=== PATIENT | female | born 1960 | race Caucasian/White ===

== ENCOUNTER 2018-03-13 10:03 | Outpatient (CLI) | payer BC, SELFPAY ==
--- NOTE | 2018-03-13 09:39 | DI.RAD_ITS ---
SYMPTOM/DIAGNOSIS: INJURY RIGHT KNEE: Two views. No priors. No acute or healing fracture or dislocation is seen. There are mild degenerative changes seen in the knee particularly involving the medial femoral tibial joint space. There does appear to be a small suprapatellar joint effusion. The soft tissues are otherwise unremarkable. IMPRESSION: No acute fracture or dislocation.
== END 2018-03-13 10:23 ==
PROVIDERS: Visit Provider Physician Assistant Surgical
DX: M25.561 Pain in right knee (principal); S89.91XA Unspecified injury of right lower leg, initial encounter; M17.11 Unilateral primary osteoarthritis, right knee
CPT/HCPCS: 73560

== ENCOUNTER 2018-03-23 00:27 | Outpatient (CLI) | payer BC, SELFPAY ==
--- NOTE | 2018-03-23 09:29 | DI.MRI_ITS ---
SYMPTOM/DIAGNOSIS: PAIN, INTERNAL DERANGEMENT, M23.91, SWELLING RIGHT KNEE MRI: Comparison is made with plain films dated 03/13/18. Fat suppressed T 2 axial, proton density and fat suppressed T 2 coronal and sagittal and proton density oblique sagittal sequences were performed. There is a moderate sized joint effusion. There is a small amount of edema near the tibial attachment of the anterior cruciate ligament but no full thickness tear. There is edema around the medial collateral ligament but no evidence of a focal tear. The lateral collateral complex and extensor mechanism appear intact. There is edema in the posterior aspect of the medial femoral condyle and posteromedial aspect of the medial tibial plateau. There is cartilage thinning extending down to bone in this area The findings may be secondary to an acute injury or could be degenerative. There is high signal in the lateral patellar facet cartilage without evidence of a focal defect. There is some fraying of the patellar cartilage. There is mild spurring at the lateral margin of the patella. There is a radially oriented tear in the posterior horn of the medial meniscus near the area of cartilage defect. The lateral meniscus appears intact. IMPRESSION: ACL and MCL sprains. Bone contusion versus degenerative change of the posterior medial femoral condyle with adjacent meniscal radial tear. Joint effusion.
== END 2018-03-23 00:47 ==
PROVIDERS: Visit Provider Orthopaedic Surgery
DX: M25.561 Pain in right knee (principal); M23.91 Unspecified internal derangement of right knee; M25.461 Effusion, right knee; S83.511A Sprain of anterior cruciate ligament of right knee, initial encounter; S83.411A Sprain of medial collateral ligament of right knee, initial encounter
CPT/HCPCS: 73721

== ENCOUNTER 2018-04-12 07:53 | Outpatient (CLI) | payer BC, SELFPAY ==
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
== END 2018-04-12 08:13 ==
PROVIDERS: PCP Family Medicine; Visit Provider Orthopaedic Surgery
DX: M25.561 Pain in right knee (principal); S83.241A Other tear of medial meniscus, current injury, right knee, initial encounter; Z01.818 Encounter for other preprocedural examination
CPT/HCPCS: NC

== ENCOUNTER 2018-04-16 05:57 | Day surgery (SDC) | payer BC, SELFPAY ==
[2018-04-16 06:11] VITALS: BP 122/73; PULSE 77; RESP 18; TEMP 37.1; O2SAT 98
[2018-04-16] MEDS: Lactated Ringers 1,000 ML 80 ML IV (06:30)
[2018-04-16 08:39] VITALS: BP 130/67; PULSE 70; RESP 16; TEMP 36.4; O2SAT 94
[2018-04-16 08:44] VITALS: BP 126/70; PULSE 68; RESP 11; TEMP 36.4; O2SAT 96
--- NOTE | 2018-04-16 08:44 | PDOC.DSDIS_ITS ---
Discharge Plan Disposition Patient Disposition: HOME Condition: Good Discharge Details Reason For Visit: TORN (R) MEDIAL MENISCUS Attending Provider: Mihai Vernon Primary Care Provider: Nay Hendricks Home Meds and New Rx's Prescriptions: New celecoxib 200 mg capsule 200 mg PO BID Qty: 30 RF: 0 hydrocodone-acetaminophen 5-325 mg tablet 1 tab PO Q6H PRN (Reason: pain) Qty: 14 RF: 0 Continued cyclobenzaprine 10 mg tablet 10 mg PO TID PRN (Reason: muscle spasm) RF: 0 promethazine 6.25 MG/5 ML syrup 25 mg PO PRN RF: 0 zolpidem [Ambien] 5 MG tablet 5 mg PO DAILY RF: 0 aspirin [Aspir-81] 81 MG tablet,delayed release (DR/EC) 81 mg PO DAILY RF: 0 multivitamin Tablet 1 tab PO DAILY RF: 0 sertraline [Zoloft] 100 mg Tablet 100 mg PO DAILY RF: 0 wlvx-4-dgi-dha-fish oil-flax-E [id number] sy-zl-ki-unit Capsule 1 cap PO DAILY RF: 0 ropinirole 0.5 mg Tablet 0.5 mg PO HS RF: 0 nicotine (polacrilex) [Nicorette] 2 mg Gum 0.5 mg BUCCAL PRN PRNRF: 0 Discontinued naproxen 500 mg Tablet 500 mg PO TID RF: 0 Discharge Instructions Additional Instructions: Elevate R leg on 1-2 pillows as much as possible over next 48 hours. Crutches to walk. Put as much weight on R leg as your pain allows. Discontinue crutches when you can step fully on R leg with minimal discomfort. Keep cryocuff on R knee continuously until tomorrow AM. Tomorrow, start to use 4 times/day for 1 hour each time to decrease swelling and pain. Remove dressings, shower, and get incisions wet after 48 hours. Leave incisions uncovered when they are dry and sealed. Take celebrex as prescribed, twice/day for inflammation and swelling. Don't take naprosyn with celebrex. Take hydrocodone if needed, for breakthru pain. Outpatient Physical therapy on Mon or to begin rehab R knee post- arthroscopic partial medial meniscectomy. Follow up in 's office in 2 weeks. Referrals: Mihai Vernon MD [ [facility] STAFF PHYSICIAN] - (f/u in 2 weeks.) Equipment/Supplies: Partial Weight Bearing Crutches Activity:: Activity as Tolerated Remove Dressings/Wound Care:: 48 hours Shower/Bathe:: 48 hours Diet:: As Tolerated Discharge Orders Discharge Orders: Discharge Order (Routine); Ordered 04/16/18 Ordered By: Mihai Vernon DS: Diagnosis Discharge Diagnosis (1) Internal derangement of knee: Status: Acute (2) Internal derangement of right knee: Status: Acute
[2018-04-16 08:49] VITALS: BP 135/72; PULSE 67; RESP 11; TEMP 36.4; O2SAT 97
[2018-04-16 09:05] VITALS: BP 133/76; PULSE 66; RESP 11; TEMP 36.3; O2SAT 97
[2018-04-16 09:55] VITALS: BP 99/65; PULSE 82; RESP 16; TEMP 36; O2SAT 96
[2018-04-16] MEDS: oxyCODONE-CR 10 MG TABCR PO (10:09)
--- NOTE | 2018-04-16 11:24 | PT.INIE ---
Date of service: 04/16/18 Time of Service: 10:55 PT Notes Inpatient Physical Therapy Evaluation Date: 04/16/2018 Referring Doctor: Mihai Vernon MD PT Orders: PT CONSULT: Instruct patient in home program of right knee range of motion exercises and quad strengthening. See in DSU prior to discharge home. Do the exercises 3 times per day Precautions: WBAT right lower extremity Patient Profile/Admitting Diagnosis: Patient is a 58-year-old female status post right medial meniscectomy and knee arthroscopy by Dr. Vernon 04/16/2018 PMHX: Posttraumatic stress disorder, breast lump removal, right breast lumpectomy, phyllodes tumor of breast, colitis, cervical nerve root impingement, cervical spine disease, internal derangement of right knee, trigger finger release, hyperlipidemia Social History/Home Situation: Lives with spouse and home Equipment Owned/DME: Axillary crutches, CryoCuff Subjective: Patient sitting in recliner chair in same day surgery status post right medial meniscectomy and knee arthroscopy. Alert and agreeable to PT consult for instruction in home exercise program and range of motion exercises. Objective: Mental Status: A and O x3 Pain: No complaints of pain Therex: Patient issued and instructed in status post knee arthroscopy range of motion and strengthening exercises, handout provided. See handout on medical record for details. Patient instructed to perform exercises 3 times per day per MD order and use cryo Cryo/Cuff status post exercise program for reduction of edema and pain. Patient verbalized understanding of therapeutic exercise, no questions at this time. Special Tests: Mobility Limitations Standardized Measure [facility] AM-PAC 6 clicks Basic Mobility Inpatient Short Form: Raw Score: 18 standardized Score: 43.63 CMS Score: 46.58% CMS Modifier: CK Informed Consent/Education: Patient instructed in purpose of PT consult and plan of care. Assessment: Patient is a 58-year-old female status post right medial meniscectomy and knee arthroscopy by Dr. Vernon 04/16/2018. Patient presents with the following impairment level findings: Decreased strength right quadricep, decreased range of motion right knee, decreased mobility requiring use of axillary crutches postoperatively. Patient was issued instruction in home exercise program (see above), patient independent with therapeutic exercise after instruction. Patient to be discharged home today with follow-up appointment with MD in a couple weeks. Impairments are contributing to the following functional limitations: AMPAC score CMS Score: 46.58% Patient is assessed as Low 11583 complexity based on the following: History: See above Examination: See above Presentation: Stable Decision Making: AMPAC score CMS Score: 46.58% Goals: not applicable Plan of Care/Treatment Plan: PT eval only DISCHARGE RECOMMENDATIONS: Home with axillary crutches and Cryo/Cuff and issued home exercise program for right knee range of motion and strengthening to perform 3 times per day TREATMENT CODE/TIME: 24 min IE 10:55 AM G Codes in the area mobility of walking and moving around: current status [id number] CK; projected status GP [id number]. Discharge status (if discharging) GP [id number] CK Tavia Israel PT.
--- NOTE | 2018-04-16 11:27 | IN_ITS ---
Date of service: 04/16/18 Time of Service: 10:55 PT Notes Inpatient Physical Therapy Evaluation Date: 04/16/2018 Referring Doctor: Mihai Vernon MD PT Orders: PT CONSULT: Instruct patient in home program of right knee range of motion exercises and quad strengthening. See in DSU prior to discharge home. Do the exercises 3 times per day Precautions: WBAT right lower extremity Patient Profile/Admitting Diagnosis: Patient is a 58-year-old female status post right medial meniscectomy and knee arthroscopy by Dr. Vernon 04/16/2018 PMHX: Posttraumatic stress disorder, breast lump removal, right breast lumpectomy, phyllodes tumor of breast, colitis, cervical nerve root impingement, cervical spine disease, internal derangement of right knee, trigger finger release, hyperlipidemia Social History/Home Situation: Lives with spouse and home Equipment Owned/DME: Axillary crutches, CryoCuff Subjective: Patient sitting in recliner chair in same day surgery status post right medial meniscectomy and knee arthroscopy. Alert and agreeable to PT consult for instruction in home exercise program and range of motion exercises. Objective: Mental Status: A and O x3 Pain: No complaints of pain Therex: Patient issued and instructed in status post knee arthroscopy range of motion and strengthening exercises, handout provided. See handout on medical record for details. Patient instructed to perform exercises 3 times per day per MD order and use cryo Cryo/Cuff status post exercise program for reduction of edema and pain. Patient verbalized understanding of therapeutic exercise, no questions at this time. Special Tests: Mobility Limitations Standardized Measure [facility] AM-PAC 6 clicks Basic Mobility Inpatient Short Form: Raw Score: 18 standardized Score: 43.63 CMS Score: 46.58% CMS Modifier: CK Informed Consent/Education: Patient instructed in purpose of PT consult and plan of care. Assessment: Patient is a 58-year-old female status post right medial meniscectomy and knee arthroscopy by Dr. Vernon 04/16/2018. Patient presents with the following impairment level findings: Decreased strength right quadricep, decreased range of motion right knee, decreased mobility requiring use of axillary crutches postoperatively. Patient was issued instruction in home exercise program (see above), patient independent with therapeutic exercise after instruction. Patient to be discharged home today with follow-up appointment with MD in a couple weeks. Impairments are contributing to the following functional limitations: AMPAC score CMS Score: 46.58% Patient is assessed as Low 63991 complexity based on the following: History: See above Examination: See above Presentation: Stable Decision Making: AMPAC score CMS Score: 46.58% Goals: not applicable Plan of Care/Treatment Plan: PT eval only DISCHARGE RECOMMENDATIONS: Home with axillary crutches and Cryo/Cuff and issued home exercise program for right knee range of motion and strengthening to perform 3 times per day TREATMENT CODE/TIME: 24 min IE 10:55 AM G Codes in the area mobility of walking and moving around: current status GPG [id number] CK; projected status GP [id number]. Discharge status (if discharging) GP [id number] CK Tavia Israel PT.
--- NOTE | 2018-04-16 16:25 | ROE_ITS ---
DATE OF PROCEDURE: April 16, 2018 PREOPERATIVE DIAGNOSIS: Torn medial meniscus with chondral injury to the medial femoral condyle, rig ht knee. POSTOPERATIVE DIAGNOSIS: Same. PROCEDURE: Arthroscopic partial medial meniscectomy, limited chondroplasty medial femoral condyle an d patella, limited synovectomy. SURGEON: Mihai Vernon M.D. ANESTHESIA: General, Ora Clark CRNA INDICATIONS: This is a 58-year-old white female who began experiencing right posteromedial knee pain with intermittent swelling at the end of September/early October of 2017. She describes an incident where s he fell backwards and hyperflexed her right knee. She experienced swelling a few days after this inc ident. The swelling has subsided but she has continued to have pain. This has not responded at all to conservative treatment. It is generally brought on by weightbearing and relieved by getting off h er feet. After she had failed to improve with conservative treatment, an MRI scan was obtained. The MRI scan did show a tear of the posterior horn of the medial meniscus with evidence of a chondral in jury to the medial femoral condyle just adjacent to her meniscal tear. Because of the failure of imp rovement with conservative treatment arthroscopic surgery was recommended to resect the meniscal tear and to treat the chondral injury. Hopefully this would cause her symptoms to subside. The risks an d complications of the procedure were explained to the patient in detail preoperatively. PROCEDURE: The patient was taken to the Operating Room on 04/16/18. She was placed supine on the oper ating table and a general anesthetic was administered. The right thigh was placed in the arthroscopi c leg zhou. The right knee was then prepped and draped free in the usual sterile fashion. Arthros copic portals were established. The right knee was inflated with normal saline solution using the ar throscopy pump and then routine arthroscopic examination proceeded. Intraoperative photographs were obtained to document the findings. Upon entering the medial compartment she was found to have normal appearing articular cartilage on th e weightbearing portion. The medial meniscus appeared intact until I got to the posterior horn. Whe n I got to the posterior horn there was a vertical tear just medial to the posterior attachment of th e medial meniscus. The attachment of the meniscus, or the meniscal root, was not injured. Just jillian cent to the meniscal tear on the medial femoral condyle nonarticulating portion was evidence of chond ral injury with loose articular cartilage that could be manipulated using a right-angle probe. I int roduced a high-radiofrequency electrocautery wand 90 degrees and I then debrided the loose articular cartilage back down to stable articular cartilage. There was no full-thickness loss of articular car tilage. After smoothing and contouring the femoral condyle, I extended the knee and visualized the a rticulation of the condyle against the tibial plateau. Mostly the lesion was nonarticulating on the medial femoral condyle. I then turned my attention to the medial meniscal tear. Using punch forceps and then the high-radiof requency electrocautery wand I was able to resect the tear back to a stable rim. At this point the m edial meniscus was probed under direct vision and was fully stable. The intercondylar notch showed i ntact anterior and posterior cruciate ligaments. The lateral compartment showed a normal lateral meniscus that was stable to probing under direct visi on. There was normal articular cartilage in the lateral compartment. The medial and lateral gutters were clear. The suprapatellar pouch was clear. The patella appeared to be tracking well. There was found to be some grade II chondromalacia of the lateral facet of the patella and the loose articular cartilage was debrided using the high-radiofrequency electrocautery w and down to stable articular cartilage. At this point, the knee was copiously irrigated with saline solution using the arthroscopy pump. I i njected into the knee 20 cc of 0.5% Marcaine with epinephrine solution along with 4 mg of morphine an d then all instruments were removed from the knee. The arthroscopy portals were infiltrated with 0.5 % Marcaine with epinephrine solution and approximated with interrupted #4-0 nylon sutures. Sterile d ressings were applied of Xeroform gauze, sterile gauze 4x4s, ABD pads, and then wrapped with a 6-inch Cuco bandage for a light compressive dressing. The patient tolerated the procedure well. Blood loss was minimal. The patient's anesthesia was reversed without complication. She was discharged to the Recovery Room in good condition. The patient was later discharged home from the Day Surgery Unit when fully recovered from her general anesthesia. She was given instructions to elevate her right leg on one to two pillows as much as po ssible for the next 48 hours. She is to use the Cryo/Cuff continuously until tomorrow morning. Afte r tomorrow morning, she may use the Cryo/Cuff four times a day for an hour each time to help decrease swelling and pain. She may loosen the Cuco wraps if they are too tight. She may remove her dressing s, shower and get her incisions wet in 48 hours. She can leave the incisions uncovered when they are dry and sealed. She will use crutches to walk, weightbearing as tolerated to the right leg. She ma y discontinue the crutches when she can step fully on the right leg with minimal discomfort. Althoug h I would like her to go to Physical Therapy, she does not want to go. I, therefore, will have Physi dima Therapy see her as a consult in the Day Surgery Unit to instruct her in range of motion and stren gthening exercises for her right knee which she will do three times a day at home. She was given a p rescription for inflammation and swelling of Celebrex 200 mg p.o. b.i.d. for two weeks. She was give n a prescription for pain of hydrocodone/APAP 5 mg/325 mg, 1 tablet q.6h. p.r.n. for breakthrough huey n. She will follow up in Dr. Vernon's office in two weeks.
== END 2018-04-16 11:15 | disposition home or self-care (01) ==
PROVIDERS: PCP Family Medicine; Visit Provider Orthopaedic Surgery
PROC: (CPT 29870; principal; 2018-04-16 07:30)
DX: S83.241A Other tear of medial meniscus, current injury, right knee, initial encounter (principal); X50.0XXA Overexertion from strenuous movement or load, initial encounter; M23.91 Unspecified internal derangement of right knee; M22.41 Chondromalacia patellae, right knee
CPT/HCPCS: 29881; 97161; J0690; J1100; J1885; J2250; J2405; J3010

== ENCOUNTER 2018-05-15 12:41 | Outpatient (REF) | payer BC, SELFPAY ==
[2018-05-15 15:17] LABS: Clarity CLOUDY; Nucleated Cells 9150 /MM3 (0-0); Polynuclear Cells 54 % (0-0); Source R KNEE
[2018-05-15 15:18] LABS: Mononuclear Cells 46 % (0-0)
== END 2018-05-15 13:01 ==
LOC: LBN 12:41
PROVIDERS: PCP Family Medicine; Visit Provider Orthopaedic Surgery
DX: M25.461 Effusion, right knee (principal); M25.561 Pain in right knee
CPT/HCPCS: 87077; 87070; 87186; 87205; 89051

== ENCOUNTER 2018-12-05 11:33 | Outpatient (CLI) | payer BC, SELFPAY ==
--- NOTE | 2018-12-05 10:55 | DI.RAD_ITS ---
SYMPTOMS/DIAGNOSIS: RT KNEE PAIN, LEFT HIP PAIN LEFT HIP AND PELVIS: In the left hip there is moderately severe narrowing of the superior joint space. There is subchondral sclerosis and periarticular spurring also present. In the right hip there is mild joint space narrowing, subchondral sclerosis and periarticular spurring. No acute fracture, dislocation, lytic or sclerotic lesion is seen. The soft tissues are unremarkable. IMPRESSION: Osteoarthritis of the hips, left greater than right. RIGHT KNEE: Two views. There is mild narrowing and periarticular spurring in the medial femoral tibial joint space. The articular surfaces are otherwise well maintained. The bones are intact and normally mineralized. There is a moderate sized suprapatellar joint effusion. IMPRESSION: 1. Mild degenerative changes of the right knee. 2. Moderate joint effusion.
== END 2018-12-05 11:53 ==
PROVIDERS: PCP Family Medicine; Visit Provider Physician Assistant
DX: M25.561 Pain in right knee (principal); M17.11 Unilateral primary osteoarthritis, right knee; M25.461 Effusion, right knee; M25.552 Pain in left hip; M16.12 Unilateral primary osteoarthritis, left hip
CPT/HCPCS: 73502; 73560

== ENCOUNTER 2019-09-26 09:30 | Outpatient (REF) | payer SELFPAY ==
[2019-09-26 16:46] LABS: Anion Gap 4.9 mmol/L (3-11); BUN 19 mg/dL (7-18); CO2 31.1 mmol/L (21.0-32.0); CREATININE 0.78 mg/dL (0.55-1.02); Calcium 9.4 mg/dL (8.5-10.1); Calculated LDL 158 mg/dL (<100); Chloride 103 mmol/L (98-107); Cholesterol 240 mg/dL (<200); Glucose 99 mg/dL (74-106); HDL Cholesterol 63 mg/dL (40-60); Potassium 4.3 mmol/L (3.5-5.1); Sodium 139 mmol/L (136-145); Triglyceride 97 mg/dL (<150)
== END 2019-09-26 09:50 ==
LOC: NCHCN 09:30
PROVIDERS: PCP Family Medicine; Visit Provider Nurse Practitioner Family
DX: Z00.00 Encounter for general adult medical examination without abnormal findings (principal); E78.5 Hyperlipidemia, unspecified
CPT/HCPCS: 80048; 80061

== ENCOUNTER 2019-10-22 11:01 | Outpatient (CLI) | payer MEDICAID, SELFPAY ==
--- NOTE | 2019-10-22 10:00 | DI.RAD_ITS ---
EXAM: XR HIP LT COMPLETE AP PELVIS CLINICAL HISTORY: pain TECHNIQUE: COMPARISON: CR XR hip LT complete AP pelvis from 12/05/2018 FINDINGS: Two views were obtained. There is severe loss of the cartilaginous joint space of the left hip super iorly. There is marked flattening of the superior aspect of the left femoral head. There is subchon dral sclerosis femoral head and acetabulum and there is subchondral cyst formation. Very prominent h ypertrophic marginal osteophytes noted. On the right there is mild narrowing of the cartilaginous joint space of the hip with prominent rosa nal osteophyte formation of the femur and acetabulum. IMPRESSION: Severe DJD left hip, moderate DJD right hip.
--- NOTE | 2019-10-22 10:00 | DI.RAD_ITS ---
EXAM: XR CERVICAL SPINE 1V CLINICAL HISTORY: pre-op assessment TECHNIQUE: COMPARISON: No exams were available for comparison FINDINGS: Single lateral view of the cervical spine was obtained. There is mild lower cervical kyphosis. Ther e is disc space narrowing at C4-5, C5-6, and C6-7. There are prominent hypertrophic endplate osteoph ytes noted at these levels. Facet hypertrophic changes also appear to be present at these levels. No other specific abnormality seen on this single lateral view. Prevertebral soft tissues are unrema rkable. IMPRESSION:
== END 2019-10-22 11:21 ==
PROVIDERS: PCP Family Medicine; Referring Provider Family Medicine; Visit Provider Orthopaedic Surgery
DX: M25.552 Pain in left hip (principal); M16.0 Bilateral primary osteoarthritis of hip; M50.321 Other cervical disc degeneration at C4-C5 level; M50.322 Other cervical disc degeneration at C5-C6 level; M50.323 Other cervical disc degeneration at C6-C7 level
CPT/HCPCS: 72020; 73502

== ENCOUNTER 2019-11-15 02:16 | Outpatient (CLI) | payer MEDICAID, SELFPAY ==
[2019-11-15 09:43] LABS: Abs Immature Grans 0.02 10^3/uL (0.0-0.06); Absolute Basophil Count 0.08 10^3/uL (0.0-0.2); Absolute Eosinophil Count 0.18 10^3/uL (0.0-0.7); Absolute Lymphocyte Count 1.91 10^3/uL (1.2-3.4); Absolute Monocyte Count 0.31 10^3/uL (0.1-0.8); Basophils % 1.3; Eosinophils % 2.9; HCT 42.4 % (36.0-46.0); HGB 13.9 g/dL (11.2-15.7); Immature Grans % 0.3; Lymphocytes % 30.8; MCH 31.8 pg (27.0-33.0); MCHC 32.8 % (32.0-36.0); MPV 9.1 fL (8.0-11.0); Neutrophils % 59.7; Nucleated RBC 0 %; Platelet Count 295 10^3/uL (130-400); RBC 4.37 10^6/uL (3.93-5.22); RDW 11.9 % (11.7-14.6); RDW-SD 42.6 fL
[2019-11-16 18:27] LABS: COVID-19 RT-PCR Result NEGATIVE (Negative)
== END 2019-11-15 02:36 ==
PROVIDERS: PCP Family Medicine; Visit Provider Orthopaedic Surgery
DX: Z01.818 Encounter for other preprocedural examination (principal)
CPT/HCPCS: 36415; 86850; 86900; 86901; U0003; 85025

== ENCOUNTER 2019-11-18 06:04 | Inpatient (IN) | payer MEDICAID, SELFPAY ==
[2019-11-18] VITALS (21 sets, daily range): BP systolic 75–130; BP diastolic 33–85; PULSE 48–90; RESP 12–20; TEMP 35.7–36.4; O2SAT 92–100
--- NOTE | 2019-11-18 | DI.RAD_ITS ---
EXAM: XR PELVIS AP CLINICAL HISTORY: check total hip components in RR. TECHNIQUE: 2D digital imaging was performed. COMPARISON: No exams were available for comparison FINDINGS: BONES: Patient is now status post left total hip arthroplasty. The orthopedic hardware appears in go od position. JOINTS: Degenerative changes are seen in the right hip characterized by subchondral sclerosis and ost eophytes. No joint effusion is present. SOFT TISSUE: Postsurgical changes are seen in the soft tissues around the left hip. IMPRESSION: Status post left total hip arthroplasty. DATA REPOSITORY: RADIATION DOSE DELIVERED:
[2019-11-18] MEDS: Lactated Ringers 1,000 ML 80 ML IV ×2 (06:48→10:57)
--- NOTE | 2019-11-18 06:55 | DI.RAD_ITS ---
EXAM: XR HIP LT COMPLETE AP PELVIS CLINICAL HISTORY: left total hip. TECHNIQUE: 2D digital imaging was performed. COMPARISON: CR XR HIP LT COMPLETE AP PELVIS from 10/22/2019 FINDINGS: A single intraoperative film was obtained. The patient is undergoing a left total hip replacement. Operative a quit mint is present in the field of view. IMPRESSION: Left total hip arthroplasty. DATA REPOSITORY: RADIATION DOSE DELIVERED:
[2019-11-18] MEDS: ceFAZolin 1 GM/50 ML BAG IVPB ×2 (07:43→12:33)
[2019-11-18] MEDS: Droperidol 5 MG/2 ML VIAL 0.625 MG IVP (11:31)
[2019-11-18] MEDS: Normal Saline Flush 10 ML SYR IV (11:35)
[2019-11-18] MEDS: oxyCODONE-CR 10 MG TABCR PO (12:34)
[2019-11-18] MEDS: POTASSIUM CHLORIDE/0.9% NACL 1,000 ML 125 MEQ IV (12:39)
[2019-11-18] MEDS: HYDROcodone 5/Acetaminophen 325 TAB PO (14:10)
--- NOTE | 2019-11-18 14:38 | ROE_ITS ---
Date of service: 11/18/19 Time of Service: 08:00 Operative Note Operative Note DATE OF PROCEDURE: 11/18/19 PRE-OP DIAGNOSIS: Osteoarthritis left hip PROCEDURE: Left total hip arthroplasty SURGEON: Mihai Vernon [employer]: Faisal Miranda ANESTHESIA: spinal ESTIMATED BLOOD LOSS: 100 PATHOLOGY: none sent COMPLICATIONS: None Patient was transported to: PACU Patient's condition: stable Implants: Size 4 Neola stem, 52 mm acetabular shell, 52 x 36 acetabular liner neutral, 36/1.5 mm ceramic femoral head. All components were press-fit. Indications: There is a 59-year-old white female with end-stage osteoarthritis of her left hip. She has had longstanding left groin pain. She has been able to tolerate it until about 14 months ago. At that point she began experiencing significant difficulty with ambulation. She used to take regular walks that she had to stop because was too painful. Over the last 6 months she has noticed significant groin pain just limiting her activities of daily living. She has a lot of pain going up and down stairs. She has difficulty putting on her shoes and socks because of pain. X-rays show complete loss of hip joint space. There is some lateral subluxation of the femoral head. Extensive subchondral cyst formation in the femoral head. There is also a large amount of osteophyte fo rmation on the femoral head neck junction. Left lower extremity now measures about centimeter shorter than the right due to the arthritis. She is no longer getting any relief from [id number] medications. Total hip arthroplasty was recommended to alleviate her pain and restore some of her previous ambulatory abilities. The risk and complication procedure been explained patient detail preop. She wishes to proceed as soon as possible. Procedure Description: Patient was taken the operating room on 11/18/2019 where a long-acting spinal anesthetic was administered. Once an effective spinal was confirmed patient was turned to the left lateral position on the operating table. Position was maintained by pneumatic beanbag. The left hip was then prepped and draped free in usual sterile fashion. Standard posterior lateral incision was made centered over the greater trochanter. The incision was carried down through the skin and subcu to the iliotibial band and gluteus fascia. Subtenon's veins were cauterized. The iliotibial band and gluteus fascia were then incised in line with the skin incision. Charnley self- retaining retractor was inserted. Piriformis tendon was identified. Prominent veins over the piriformis tendon were cauterized. Peripheral form is tendon was released from its insertion of the posterior femoral head neck. The remainder the short external rotators were also released. Incision was made in the hip joint capsule as far anteriorly as possible. A good substantial flap was raised of posterior capsule for closure. Femoral head was dislocated. The femoral head had extensive osteophyte formation at the femoral head neck junction with complete loss of articular cartilage on the femoral head. The femoral neck was then resected at appropriate level and angle using the femoral neck resection guide and oscillating saw. Anterior capsulectomy was performed. Anterior and posterior retractors were inserted around the acetabulum. An excellent view of the acetabulum was obtained. Acetabulum was then serially reamed with hemispherical reamers to an outside diameter of 52 mm. A 52 mm acetabular shell was then press-fit. A good solid press-fit was obtained. The press-fit was then supplemented by one screw to the acetabular shell. Trial liner was then placed and attention was turned to the femoral side. Femoral canal was then serially reamed with straight reamers with the reamers becoming tight at 5. She was serially broached up to size 4. Trial broach was left in place and high offset neck with a femoral head trial of 1.5 x 36 was then reduced into the acetabulum. Intraoperative AP x-rays obtained they showed a good fit and fill of femoral canal with a size 4 stem. The acetabulum is a good position the limb lengths were equalized with a +1.5 femoral head. Trial components were then removed. Center covering the acetabular shell was then inserted. The actual liner 52 x 36 neutral was then inserted in the acetabular shell and impacted and locked in the place with the impactor mallet. I then tried to broach the femoral canal with a size 5 to see if I could insert a slightly larger stem. I found that I could not insert the 5 broach more than group home. I then abandon this and then inserted a size 4 Neola stem KERR porous-coated. There was very tight press-fit. I then then inserted a 36 mm +1.5 ceramic femoral head onto the neck of the stem and impacted in place with a mallet and impactor. The wound was irrigated with a pulse irrigation lavage of saline solution. The femoral component was then reduced in the acetabulum. Stability was then checked. The hip was stable to 90 degrees of flexion and 70 degrees of internal rotation. It was stable to external rotation and extension. The left leg was abducted a Springer stand and closure was begun. I placed 2 g of tranexamic acid and 150 cc of saline into the wound the wound margins were infiltrated 0.5% Marcaine with epinephrine epinephrine solution. The previously raised posterior capsular flap was then attached to the posterior edge of the greater trochanter through drill holes with #2 FiberWire suture. The piriformis tendon was reattached to the abductor tendon at the tip of the greater trochanter with a couple of interrupted #1 Vicryl sutures. The iliotibial band and gluteus fascia were approximated with interrupted [id number] sutures of #1 Vicryl suture material. Subcu was approximated interrupted 2-0 Vicryl sutures. The skin is approximated with a running subcuticular suture of #3 Monocryl supplemented by tissue glue and Steri-Strips. A Mepilex dressing was applied. Patient was turned supine abductor pillow was previously in her legs. Patient was discharged to the recovery room in good condition. Estimated blood loss 100 cc. She experienced no intraoperative complications.
[2019-11-18] MEDS: Ketorolac 30 MG/ML VIAL IVP (14:59)
--- NOTE | 2019-11-18 15:35 | IN_ITS ---
Date of service: 11/18/19 Time of Service: 15:35 PT Notes Visit Reasons: L HIP DJD/L TOTAL HIP REPLACEMENT Physical Therapy Inpatient Initial Evaluation Date: 11/18/2019 Referring Doctor: Mihai Vernon MD PT Orders: PT CONSULT: Status post Ortho surgery. Get OOB ambulating in room this afternoon WBAT to left leg total hip precautions Precautions: Fall. Standard. Total hip precautions on. Patient Profile/Admitting Diagnosis: Anne is a 59-year-old female with primary unilateral osteoarthritis of the left hip and is status post left total hip arthroplasty on post operative day 0. PMHX: Medical History Cervical nerve root impingement (Acute) Right arm/hand numbness and weakness due to cervical spine issues Cervical spine disease (Acute) C4-7 Sees spine clinic regularly for the last 19 years History of colitis (Acute) Hyperlipidemia (Acute) Internal derangement of right knee (Acute) Phyllodes tumor of breast (Acute) PTSD (post-traumatic stress disorder) (Acute) Due to childhood trauma Surgical History Colonoscopy - IV Sedation History of excision of mass (Acute) Describes greater than 7 surgeries to remove benign tumors from hands, legs, feet, face and chest Status post breast lump removal (Acute) Left breast excision of mass due to fibrocystic changes September 2005 Status post right breast lumpectomy (Acute) Reexcision lumpectomy for borderline phyllodes tumor followed by radiation therapy September 2004 Status post trigger finger release (Acute) Right thumb Social History/Home Situation: Anne lives with her second other Jm in a private home with 15 steps to enter and rails on both sides. She stresses however that from the hospital she will be transitioning to her son's house with 4 steps to enter and rails in both sides. Anne has been independent with all aspects of ADLs without the need for an assistive ambulatory device nor adaptive equipment although recently she has been having significant difficulty with weightbearing and with activities of daily living. Equipment Owned/DME: Front wheel walker, raised toilet seat, walk-in shower Subjective: Anne states that she is looking forward to going home today. She is hopeful that she is going to pass the physical therapy obstacle course so she can go home today. She reports 3/10 pain in the left hip. She denies headache, dizziness, and chest pain throughout session. She emphasized that she will not be home alone at her son's house and hopes to go back to her private home once she is ready to do so. Objective: General Observation: Bilateral TEDS on. IV access in right UE. Mepilex Ag over surgical incision. Mental Status: Alert and oriented x4 Pain: 3/10 in the left hip ROM: Right Upper Extremity: Shoulder Flexion WFL. Shoulder abduction WFL. Elbow flexion WFL. Wrist flexion WFL. Opening and closing of hand WFL. Left Upper Extremity: Shoulder Flexion WFL. Shoulder abduction WFL. Elbow f lexion WFL. Wrist flexion WFL. Opening and closing of hand WFL. Right Lower Extremity: Hip flexion WFL. Hip abduction WFL. Knee flexion WFL. Ankle dorsiflexion WFL. Ankle plantarflexion WFL. Left Lower Extremity: Hip flexion NT due to movement precautions. Hip abduction WFL. Knee flexion WFL. Ankle dorsiflexion WFL. Ankle plantarflexion WFL. Strength: Right Upper Extremity: Shoulder flexors 5/5. Shoulder abductors 5/5. Elbow flexors 5/5. Elbow extensors 5/5. Maintenance Mechanic Helper strong. Left Upper Extremity: Shoulder flexors 5/5. Shoulder abductors 5/5. Elbow flexors 5/5. Elbow extensors 5/5. Maintenance Mechanic Helper strong. Right Lower Extremity: Hip flexors 5/5. Hip abductors 5/5. Knee flexors 5/5. Knee extensors 5/5. Ankle dorsiflexors 5/5. Ankle plantarflexors 5/5. Left Lower Extremity:Hip flexors continue to move precautions. Hip abductors 4/5. Knee flexors 4/5. Knee extensors 4/5. Ankle dorsiflexors 4/5. Ankle plantarflexors 4/5. Sensation: When seen earlier at 12:45 PM patient was reporting being numb from the waist down to the leg. Later this afternoon patient is intact as to pain and pressure on bilateral lower extremities. Bed Mobility/Transfers: Supine to sit independent Sit to supine independent Sit to stand supervision Stand to sit supervision Bed to chair supervision Chair to bed supervision Gait: Patient tolerated level surface ambulation of 150 feet x 2 using a front wheeled walker with WBAT on the left LE requiring only standby assist of PT and chair follow-up nurse Scott on way and significant other jm going back. Step through gait pattern with no increase in pain report with weightbearing. Patient was also tolerated up-and-down six 4-inch steps and four 6-inch steps while holding onto bilateral rails using step to gait pattern requiring only standby assist of PT. Balance: Static Sitting: Normal Dynamic Sitting: Normal Static Standing: Fair Dynamic Standing: Fair Special Tests: Mobility Limitations Standardized Measure [facility] AM-PAC 6 clicks Basic Mobility Inpatient Short Form: Raw Score: 21 CMS Score: 29% deficit Informed Consent/Education: Patient instructed in purpose of PT consult and plan of care. Assessment: Anne demonstrates functional mobility decline requiring the use of a front wheeled walker from for all mobility performance for safety, weakness in the left hip major muscle groups, difficulty with walking, and increased fall risk due to postoperative status. Anne is a 59-year-old female with primary unilateral osteoarthritis of the left hip and is status post left total hip arthroplasty on post operative day 0. Patient presents with clinical signs and symptoms consistent with current/admitting diagnoses that have resulted to mobility limitations, gait instability, generalized weakness, and impairment of motor control as demonstrated by the following impairment level findings: 1. Decreased strength to left hip major muscle groups 2. Impaired standing balance 3. Impaired activity tolerance 4. Limitation of joint range of motion in left hip Impairments are contributing to the following functional limitations: 1. Inability to safely ambulate without assistive device and physical ass istance 2. Increase completion time for mobility ADL performance 3. Increased fall risk 4. Inability to negotiate steps alone safely Patient is assessed [place] a 27060 moderate complexity based on the following: History: 59-year-old female with impairment level findings, functional limitations, and past medical history as indicated above Examination: Demonstrable impairment in strength, balance, and mobility level with underlying impairments and functional limitations as documented above Presentation:Evolving Decision Makin moderate complexity Goals: N/A. PT consult and 1 treatment session only. Plan of Care/Treatment Plan: N/A. PT consult and 1 treatment session only. DISCHARGE RECOMMENDATIONS: Outpatient physical therapy services in order to facilitate return to premorbid independent level. TREATMENT CODE/TIME: 99071 x 20 minutes, 89670 x 38 minutes beginning at 15:35 PM. Thank you for the opportunity to participate in the care of this patient. Joy Evans PT, DPT, CLT [facility] [place], [place]
--- NOTE | 2019-11-18 16:12 | W.PM.DS.N ---
Date of service: 11/18/19 Time of Service: 16:12 DS: Diagnosis Discharge Diagnosis (1) Primary osteoarthritis of left hip: Status: Chronic Discharge Plan Disposition Patient Disposition: HOME Condition: Good Discharge Details Reason For Visit: L HIP DJD/L TOTAL HIP REPLACEMENT Admit Date/Time: 11/18/19 06:04 Admit Provider: Mihai Vernon Attending Provider: Mihai Vernon Primary Care Provider: aNy Hendricks [facility] Hospital Course: Patient was taken to the operating room on the day of admission 11/18/2019 where she underwent a left total hip arthroplasty without complications. Patient expressed a strong desire to go home rather than stay overnight in the hospital. Her postop pain was well controlled with long-acting spinal block. She felt she could manage at home with p.o. pain meds only. She was seen by physical therapy and mobilize with a walker. She was independent with transfers and ambulation. I felt it was safe for her to go home tonight. She will therefore be discharged. Home Meds and New Rx's Prescriptions: New hydrocodone-acetaminophen 5-325 mg tablet 1 tab PO Q4H PRNQty: 14 RF: 0 gabapentin 100 mg capsule 100 mg PO TID Qty: 30 RF: 0 No Action biotin 10,000 mcg capsule 10,000 mcg PO DAILY RF: 0 acetaminophen 500 mg capsule 500 mg PO Q6H PRNRF: 0 naproxen 500 mg tablet 500 mg PO BID PRNRF: 0 cyclobenzaprine 10 mg tablet 10 mg PO TID PRN (Reason: muscle spasm) RF: 0 promethazine 6.25 MG/5 ML syrup 25 mg PO PRN RF: 0 zolpidem [Ambien] 5 MG tablet 5 mg PO DAILY RF: 0 aspirin [Aspir-81] 81 MG tablet,delayed release (DR/EC) 81 mg PO DAILY RF: 0 multivitamin Tablet 1 tab PO DAILY RF: 0 sertraline [Zoloft] 100 mg Tablet 100 mg PO DAILY RF: 0 ropinirole 0.5 mg Tablet 0.5 mg PO HS RF: 0 atorvastatin 10 mg Tablet 10 mg PO DAILY RF: 0 Discharge Instructions Additional Instructions: Walk every day as much as discomfort allows with a walker. Elevate left leg when sitting. Wear elastic compressive stocking during daytime only for 2 weeks. Apply ice to left hip incision 4 times a day for an hour each time. May shower and get dressing wet in 72 hours. Do not remove the dressing. Follow-up with Dr. Vernon in 1 week. Call his office tomorrow to make the appointment. Take gabapentin 3 times a day as prescribed for 10 days which helps with nerve pain. Take hydrocodone for breakthrough pain if needed. Continue take your Naprosyn twice a day. Can take Tylenol with all these meds. Observe total hip precautions on the left for 6 weeks postop. Sleep with a pillow between your legs to remind you not to cross your leg. You may lay on operative side to sleep. Referrals: Mihai Vernon MD [ [facility] STAFF PHYSICIAN] - Activity:: Activity as Tolerated Equipment/Supplies:: Walker Diet:: As Tolerated Discharge Orders Discharge Orders: Discharge Order (Routine); Ordered 11/18/19 Ordered By: Mihai Vernon DS: Summary Status at Discharge Functional status at discharge: uses cane/walker Overall status at discharge: patient is not back to baseline Mental Status: mental status grossly normal Speech and Movement: speech and movement normal Mood: congruent mood Affect: normal affect Exam Psych Mental Status: mental status grossly normal Speech and Movement: speech and movement normal Mood: congruent mood Affect: normal affect DS: Data Vitals/I&O Vitals and I&O: Vital Signs Temperature 35.8 C L 11/18/19 14:05 Temperature Source Tympanic 11/18/19 14:05 Pulse 81 11/18/19 14:05 Pulse Rhythm Regular 11/18/19 12:00 Respiratory Rate 18 11/18/19 14:05 Respiratory Effort 11/18/19 12:00 Respiratory Depth Deep 11/18/19 12:00 Respiratory Pattern Normal 11/18/19 12:00 Blood Pressure 109/65 11/18/19 14:05 Pulse Oximetry 97 11/18/19 14:05 Respiratory End-tidal CO2 36 11/18/19 11:45 Oxygen Delivery Method Room Air 11/18/19 14:05 Oxygen Flow Rate 0 11/18/19 14:05 Pain Level 4 11/18/19 14:59 Intake & Output 11/17/19 11/18/19 11/18/19 23:59 11:59 23:59 Intake Total 1260.667 / 1545.334 284.667 / 1545.334 Output Total 300 / 300 Balance 960.667 / 1245.334 284.667 / 1245.334 Weight 54.1 kg Intake: IV 1260.667 / 1295.334 34.667 / 1295.334 Oral 250 / 250 Output: Urine 50 / 50 Estimated Blood Loss 250 / 250 Other: Urine Color Yellow Urine Appearance Clear Clear Emesis Description None PFSH Medical History Cervical nerve root impingement (Acute) Right arm/hand numbness and weakness due to cervical spine issues Cervical spine disease (Acute) C4-7 Sees spine clinic regularly for the last 19 years History of colitis (Acute) Hyperlipidemia (Acute) Internal derangement of right knee (Acute) Phyllodes tumor of breast (Acute) PTSD (post-traumatic stress disorder) (Acute) Due to childhood trauma Surgical History Colonoscopy - IV Sedation History of excision of mass (Acute) Describes greater than 7 surgeries to remove benign tumors from hands, legs, feet, face and chest Status post breast lump removal (Acute) Left breast excision of mass due to fibrocystic changes September 2005 Status post right breast lumpectomy (Acute) Reexcision lumpectomy for borderline phyllodes tumor followed by radiation therapy September 2004 Status post trigger finger release (Acute) Right thumb Family History Mother Metastatic breast cancer Father Heart disease Myocardial infarction Social History (Updated 04/12/18 @ 14:34 by Eva Lin) Smoking/Tobacco Use Status: Former Tobacco Use Pack-years: 38 Alcohol Intake: never Drug use: Never Substance use type: does not use Do you feel safe in your relationship?: Yes
== END 2019-11-18 17:39 | disposition home or self-care (01) | DRG 470 ==
LOC: PDS 08:24 → MS 09:56
PROVIDERS: Admitting Provider Orthopaedic Surgery; PCP Family Medicine; Visit Provider Orthopaedic Surgery
PROC: 0SRB04A Replacement of Left Hip Joint with Ceramic on Polyethylene Synthetic Substitute, Uncemented, Open Approach (ICD-10-PCS; CPT 27130; principal; 2019-11-18 07:30)
DX: M16.12 Unilateral primary osteoarthritis, left hip (principal); M25.552 Pain in left hip; Z96.642 Presence of left artificial hip joint; G89.18 Other acute postprocedural pain
CPT/HCPCS: 27130; 97162; 97530; NC; 72170; 73502; J0690; J1790; J1885; J2250; J2405; J2704; L1686

== ENCOUNTER 2019-11-26 11:05 | Outpatient (CLI) | payer MEDICAID, SELFPAY ==
--- NOTE | 2019-11-26 10:45 | DI.RAD_ITS ---
EXAM: XR HIP LT COMPLETE AP PELVIS INDICATION: 1st post op. COMPARISON: CR XR PELVIS AP from 11/18/2019 TECHNIQUE: 2D digital imaging was performed. FINDINGS: A left hip prosthesis is again noted. The alignment appears satisfactory. There are no abnormal bon y lucencies. Degenerative changes are again noted in the right hip. DATA REPOSITORY: RADIATION DOSE DELIVERED:
== END 2019-11-26 11:25 ==
PROVIDERS: PCP Family Medicine; Referring Provider Family Medicine; Visit Provider Orthopaedic Surgery
DX: Z96.642 Presence of left artificial hip joint (principal); M16.11 Unilateral primary osteoarthritis, right hip
CPT/HCPCS: 73502

== ENCOUNTER 2020-02-12 14:49 | Outpatient (CLI) | payer MEDICAID, SELFPAY ==
--- NOTE | 2020-02-12 09:45 | DI.RAD_ITS ---
EXAM: XR KNEE RT 2V AP,LAT CLINICAL HISTORY: pain. TECHNIQUE: 2D digital imaging was performed. COMPARISON: CR XR knee RT 2V AP,lat from 12/05/2018 FINDINGS: Dclk-ln-hexwtbuq degenerative changes are seen in the right knee characterized by joint space narrowi ng, subchondral sclerosis and periarticular spurring found in the medial femoral tibial joint. There is a small joint effusion. No acute fracture or dislocation. The soft tissues are unremarkable. IMPRESSION: Adjy-ps-yfccyldn degenerative changes in the right knee. DATA REPOSITORY: RADIATION DOSE DELIVERED:
== END 2020-02-12 15:09 ==
PROVIDERS: PCP Family Medicine; Visit Provider Orthopaedic Surgery
DX: M17.11 Unilateral primary osteoarthritis, right knee (principal)
CPT/HCPCS: 73560

== ENCOUNTER 2020-05-07 11:30 | Outpatient (CLI) | payer MEDICAID, SELFPAY ==
--- NOTE | 2020-05-07 10:45 | DI.RAD_ITS ---
EXAM: XR KNEE RT 1V CLINICAL HISTORY: TKA planning. TECHNIQUE: 2D digital imaging was performed. COMPARISON: CR XR KNEE RT 2V AP,LAT from 02/12/2020 FINDINGS: Single lateral template view compared to 02/12/2020. There is joint space narrowing, similar to previous. There appears to be a joint effusion. No osseo us lesions. No fracture evident. IMPRESSION: DATA REPOSITORY: RADIATION DOSE DELIVERED:
--- NOTE | 2020-05-07 10:45 | DI.RAD_ITS ---
EXAM: XR STANDING ALIGNMENT CLINICAL HISTORY: TKA plannin. TECHNIQUE: 2D digital imaging was performed. COMPARISON: Are relevant studies reviewed. FINDINGS: There is a left hip prosthesis which appears satisfactory position alignment. Significant degenerati ve changes in the opposite-right hip. There are degenerative changes in the right knee medial compar tment. Minimal degenerative findings in the opposite-left knee. No osseous lesions. Bone density a ppears age appropriate. IMPRESSION: DATA REPOSITORY: RADIATION DOSE DELIVERED:
== END 2020-05-07 11:50 ==
PROVIDERS: PCP Family Medicine; Referring Provider Family Medicine; Visit Provider Physician Assistant
DX: M17.11 Unilateral primary osteoarthritis, right knee (principal); M25.461 Effusion, right knee
CPT/HCPCS: 73560; 77073

== ENCOUNTER 2020-05-20 10:03 | Outpatient (CLI) | payer MEDICAID, SELFPAY ==
--- NOTE | 2020-05-20 08:46 | DI.RAD_ITS ---
EXAM: XR KNEE RT 1V CLINICAL HISTORY: f/u. TECHNIQUE: 2D digital imaging was performed. COMPARISON: CR XR KNEE RT 2V AP,LAT from 02/12/2020 CR XR KNEE RT 2V AP,LAT from 02/12/2020 CR XR STANDING ALIGNMENT from 05/07/2020 CR XR STANDING ALIGNMENT from 05/07/2020 CR XR KNEE RT 1V from 05/07/2020 FINDINGS: A single patellar view was performed. There is mild spurring at the articular aspect of the patella. There is mild lateral patellar subluxation. No significant joint space narrowing is seen. IMPRESSION: Mild patellofemoral degenerative changes. DATA REPOSITORY: RADIATION DOSE DELIVERED:
--- NOTE | 2020-05-21 10:58 | PDOC.ANES ---
Date of service: 05/21/20 Time of Service: 10:58 Anesthesia Note Report Anesthesia Note: Anesthesia consult for chart review requested by Dr. Rene Roberts for evaluation prior to scheduling a right medial unicondylar knee arthroplasty for this patient in the coming month. Review of previous records find that the patient has received an anesthetic here by our department in the last year. Per the preop by Eliel Avina CRNA the patient was MP 1 with FROM and edentulous with dentures. Of note in the problem list is cervical osteoarthritis, limited cervical range of motion, cervical impingment with right upper extremity weakness. The patient received a paramedian spinal due to small and difficult to appreciate interspaces, achieved on first attempt with a good spinal block for her JACOB in 11/2019. I believe this patient is clear to proceed, as we have not recently intubated her and considering her extensive cervical history I believe that an indirect laryngoscopy with neutral cervical positioning would be beneficial if a GETA is indicated. Thank you for the consult.
== END 2020-05-20 10:04 | disposition home or self-care (01) ==
LOC: DIORS 10:03
PROVIDERS: PCP Family Medicine; Visit Provider Student in an Organized Health Care Education/Training Program
DX: M17.11 Unilateral primary osteoarthritis, right knee (principal)
CPT/HCPCS: 73560

== ENCOUNTER 2020-06-19 22:23 | Day surgery (SDC) | payer MEDICAID, SELFPAY | END 2020-06-19 22:24 | disposition home or self-care (01) | LOC: SUR 22:23 | PROVIDERS: PCP Family Medicine; Visit Provider Student in an Organized Health Care Education/Training Program | DX: Z53.9 Procedure and treatment not carried out, unspecified reason (principal) ==

== ENCOUNTER 2020-07-06 08:58 | Day surgery (SDC) | payer MEDICAID, SELFPAY ==
[2020-07-06 09:01] VITALS: BP 108/75; PULSE 80; RESP 17; TEMP 36.3; O2SAT 98
[2020-07-06] MEDS: Tropicam./Phenyleph. (1/2.5%) 5 ML BTL OD ×3 (09:19→09:35)
[2020-07-06] MEDS: Tetracaine 0.5% 4 ML BTL OD (10:19)
[2020-07-06] MEDS: Lidocaine 2% Jelly 6 ML SYR (10:19)
[2020-07-06] MEDS: Povidone-Iodine Ophth 30 ML BTL (10:19)
[2020-07-06] MEDS: Balanced Salt Soln.-PLUS 500 ML BAG (10:24)
[2020-07-06] MEDS: Lidocaine 1% Pres-Free 5 ML VIAL (10:26)
[2020-07-06] MEDS: Duovisc Viscoelastic System EACH 1 EACH (10:27)
--- NOTE | 2020-07-06 10:53 | W.PM.DSUDISC ---
Discharge Plan Disposition Patient Disposition: HOME Condition: Good Discharge Details Attending Provider: Zhou Carter Primary Care Provider: Nay Hendricks Home Meds and New Rx's Prescriptions: No Action biotin 10,000 mcg capsule 10,000 mcg PO DAILY RF: 0 acetaminophen 500 mg capsule 500 mg PO Q6H PRNRF: 0 naproxen 500 mg tablet 500 mg PO BID PRNRF: 0 cyclobenzaprine 10 mg tablet 10 mg PO TID PRN (Reason: muscle spasm) RF: 0 promethazine 6.25 MG/5 ML syrup 25 mg PO PRN RF: 0 aspirin [Aspir-81] 81 MG tablet,delayed release (DR/EC) 81 mg PO DAILY RF: 0 multivitamin Tablet 1 tab PO DAILY RF: 0 sertraline [Zoloft] 100 mg Tablet 100 mg PO DAILY RF: 0 ropinirole 0.5 mg Tablet 0.5 mg PO HS RF: 0 atorvastatin 10 mg Tablet 10 mg PO DAILY RF: 0 Discharge Instructions Stand Alone Forms: Post-op Topical Cataract, Az Cano (DSU) Discharge Orders Discharge Orders: Discharge Order (Routine); Ordered 07/06/20 Ordered By: Zhou Carter DS: Diagnosis Discharge Diagnosis (1) Nuclear sclerotic cataract of right eye: Status: Resolved
--- NOTE | 2020-07-06 10:53 | W.PM.OP ---
Date of service: 07/06/20 Time of Service: 10:54 Operative Note Operative Note DATE OF PROCEDURE: 07/06/20 PRE-OP DIAGNOSIS: Nuclear cataract, right eye POST-OP DIAGNOSIS: same PROCEDURE: Cataract extraction using phacoemulsification with intraocular lens implant, right eye SURGEON: Zhou Carter ANESTHESIA TYPE: Local By Surgeon and MAC Refer to Anesthesia Record ESTIMATED BLOOD LOSS: 0 PATHOLOGY: none sent COMPLICATIONS: None Patient was transported to: same day Patient's condition: stable Implants: Yovany [employer] / [employer] Tecnis [id number] intraocular lens Indications: Progressive decreased vision due to cataract, right eye Procedure Description: CATARACT SURGERY OPERATIVE REPORT PREOPERATIVE DIAGNOSIS: Nuclear cataract, right eye POSTOPERATIVE DIAGNOSIS: Same OPERATION: Cataract extraction using phacoemulsification with posterior chamber intraocular lens implant, right eye. IOL: IOL Assistant General Manager/Model: [employer] Vision / WERNER Tecnis [id number] IOL Power: + 17.0 diopters IOL Serial Number: [id number] Optic Diameter: 6.0mm Haptic/Overall Diameter: 13.0mm PHACO INFO: Antonio [employer] Vision System with OZil and Active [employer]uidics Cumulative Dispersed Energy (CDE): 12.04 seconds SURGEON: Zhou Carter MD, KIMMIE ANESTHESIA: Monitored Anesthesia Care (MAC), with local sub-tenon's anesthetic infiltration COMPLICATIONS: None SPECIMENS: None INDICATIONS FOR PROCEDURE: The patient is a 60-year-old lady with history of diminished visual acuity in her right eye. She is noted to have moderate nuclear cataract, but she is extremely symptomatic with best corrected visual acuity of 20/60. The option of cataract surgery was offered to the patient and she wished to proceed. PROCEDURE: The correct surgical eye was identified and marked as the right eye and the pupil was dilated in the preoperative area using mydriatics and cycloplegics. The dilated pupil size was 8.0 mm. Oral sedation was administered in the form of an Imprimis MKO Melt (midazolam 3mg/ketamine 25mg/ondansetron 2mg). The patient was brought to the operating room where cardiopulmonary monitoring was instituted and surgical time-out was performed, confirming the correct operative eye and IOL power. Topical anesthesia was administered and ophthalmic povidone-iodine 5% was instilled into the conjunctival fornices. Lidocaine gel was applied to the cornea and the kari-ocular area was prepped using sterile water only, due to history of severe iodine allergy. An aperture drape was placed over the right eye. A Tegaderm transparent film dressing was cut in half and used to cover the lashes and lid margins. Care was taken to sequester the lashes and lid margins under the Tegaderm dressing. A lid speculum was placed between the lids of the operative eye and the Dania-Lidia operating microscope was maneuvered into position. Dwaine scissors were then used to make a conjunctival buttonhole approximately 6mm posterior to the limbus in the inferonasal quadrant. Blunt dissection was carried out to expose bare sclera, and a blunt-tipped sub-tenon?s anesthesia cannula was introduced and passed posteriorly along the globe where non-preserved plain lidocaine was injected into posterior sub-Tenon?s space. A sideport knife was used to make a paracentesis port inferiortemporally. Intraocular phenylephrine/lidocaine was injected into the anterior chamber. The anterior chamber was then filled with viscoelastic. A 2.4mm keratome knife was used to create a half-thickness groove at the limbus and then to construct a three-plane near-clear corneal tunnel extending 2.0mm into clear cornea in the superiortemporal position. . A flap was raised on the anterior capsule and capsulorhexis forceps were used to complete a continuous curvilinear capsulorhexis of 5.5 mm. Capsulorhexis was challenging, as the eye was in a significantly depressed position. Balanced salt solution was then used to perform cortical cleaving hydrodissection and nuclear hydrodelineation until the lens could be freely rotated within the capsular bag. The lens nucleus was then disassembled and removed within the capsular bag and iris plane using phacoemulsification. Residual cortical material was removed using the I/A handpiece. The posterior capsule was carefully polished to remove as much residual lens epithelial cells as safely possible. The capsular bag was then inflated and the anterior chamber deepened with viscoelastic. The lens implant described above was inserted into the capsular bag using the WERNER [place] Injector. A Kuglen hook was used to dial the IOL into position. Residual viscoelastic was then removed first from posterior to the IOL, then from the anterior chamber using the I/A handpiece. The lens implant was noted to center nicely within the capsular bag. The incisions were stromally hydrated, and the anterior chamber was reformed using BSS. Then 0.5cc of moxifloxacin 1.0mg/ml were injected into the capsular bag and anterior chamber. The incisions were checked with a Weck spear and found to be secure. Several drops of ophthalmic povidone-iodine 5% were then applied to the eye followed by two drops of Imprimis combination prednisolone/moxifloxacin/nepafenac solution. The drapes were removed and a clear plastic protective eye shield was placed over the eye. The patient was then returned to [facility] in stable condition.
[2020-07-06 11:25] VITALS: BP 92/61; PULSE 83; RESP 16; TEMP 36.3; O2SAT 93
== END 2020-07-06 11:35 | disposition home or self-care (01) ==
PROVIDERS: PCP Family Medicine; Visit Provider Ophthalmology
PROC: (CPT 66984; principal; 2020-07-06 11:30)
DX: H25.11 Age-related nuclear cataract, right eye (principal)
CPT/HCPCS: 66984; V2632

== ENCOUNTER 2020-08-04 12:05 | Outpatient (REF) | payer MEDICAID, SELFPAY ==
[2020-08-04 18:27] LABS: HCT 37.3 % (36.0-46.0); HGB 12.2 g/dL (11.2-15.7); MCH 30.6 pg (27.0-33.0); MCHC 32.7 % (32.0-36.0); MCV 93.5 fL (80-95); MPV 9.7 fL (8.0-11.0); Platelet Count 275 10^3/uL (130-400); RBC 3.99 10^6/uL (3.93-5.22); RDW 13.2 % (11.7-14.6); RDW-SD 45.1 fL; WBC 5.84 10^3/uL (4.4-10.8)
[2020-08-04 18:41] LABS: Anion Gap 7.8 mmol/L (3-11); BUN 22 mg/dL (7-18); CO2 27.2 mmol/L (21.0-32.0); CREATININE 0.7 mg/dL (0.55-1.02); Calcium 9.3 mg/dL (8.5-10.1); Chloride 105 mmol/L (98-107); Glucose 95 mg/dL (74-106); Potassium 4.2 mmol/L (3.5-5.1); Sodium 140 mmol/L (136-145)
== END 2020-08-04 12:06 | disposition home or self-care (01) ==
LOC: NCHCN 12:05
PROVIDERS: PCP Family Medicine; Visit Provider Nurse Practitioner Family
DX: Z01.818 Encounter for other preprocedural examination (principal)
CPT/HCPCS: 80048; 85027

== ENCOUNTER 2021-06-17 17:27 | Outpatient (REF) | payer MEDICAID, SELFPAY ==
--- NOTE | 2021-06-17 13:50 | PAPFT_PTH ---
PATIENT: Anne Rodriguez LOC: [facility] U#:[id number] AGE/SX: 61/F ROOM: RE06/17/[address]: Michelle Moe : 1960 BED: DIS: 06/17/2021 SPEC #: [id number] RECD: 06/17/21 18:13 STATUS: RODERICK REIta #: [id number] GRETA: 06/17/21 13:[address]: Michelle Moe DEPT: [facility] Cytology RECD BY: Sakshi Ragland ENTERED: 06/17/21 18:14 SP TYPE: PAPFT OTHR DR: Nay Hendricks Tissues: 1 - CX/ENDOCX FOR PAP SMEARS Procedures: PAP THIN PREP/[facility] Screening HPV DNA PROBE Comments: [id number]
== END 2021-06-17 17:28 | disposition home or self-care (01) ==
LOC: LBN 17:27
PROVIDERS: PCP Family Medicine; Visit Provider Nurse Practitioner Family
DX: Z12.4 Encounter for screening for malignant neoplasm of cervix (principal); Z11.51 Encounter for screening for human papillomavirus (HPV)
CPT/HCPCS: 88142; 87624

== ENCOUNTER 2021-12-14 17:26 | Outpatient (REF) | payer MEDICAID, SELFPAY ==
[2021-12-14 14:44] LABS: HCT 41.4 % (36.0-46.0); HGB 13.6 g/dL (11.2-15.7); MCH 31.9 pg (27.0-33.0); MCHC 32.9 % (32.0-36.0); MCV 97 fL (80-95); MPV 9.7 fL (8.0-11.0); Platelet Count 223 10^3/uL (130-400); RBC 4.27 10^6/uL (3.93-5.22); RDW 12.4 % (11.7-14.6); RDW-SD 44.2 fL
[2021-12-14 14:56] LABS: Anion Gap 6.5 mmol/L (3-11); BUN 18 mg/dL (7-18); CO2 29.5 mmol/L (21.0-32.0); CREATININE 0.7 mg/dL (0.55-1.02); Calcium 9.2 mg/dL (8.5-10.1); Calculated LDL 90 mg/dL (<100); Chloride 105 mmol/L (98-107); Cholesterol 162 mg/dL (<200); Estimated GFR 97.12 (mL/min/1.73m2); Glucose 99 mg/dL (74-106); HDL Cholesterol 60 mg/dL (40-60); Potassium 4.6 mmol/L (3.5-5.1); Sodium 141 mmol/L (136-145); Triglyceride 63 mg/dL (<150)
== END 2021-12-14 17:27 | disposition home or self-care (01) ==
LOC: NCHCN 17:26
PROVIDERS: PCP Family Medicine; Visit Provider Nurse Practitioner Family
DX: E78.5 Hyperlipidemia, unspecified (principal); Z00.00 Encounter for general adult medical examination without abnormal findings
CPT/HCPCS: 80048; 80061; 85027

== ENCOUNTER 2022-02-10 14:23 | Outpatient (REF) | payer MEDICAID, SELFPAY ==
[2022-02-10 15:21] LABS: HCT 40.1 % (36.0-46.0); HGB 13.3 g/dL (11.2-15.7); MCHC 33.2 % (32.0-36.0); MCV 96 fL (80-95); MPV 9.8 fL (8.0-11.0); Platelet Count 235 10^3/uL (130-400); RBC 4.16 10^6/uL (3.93-5.22); RDW 12.3 % (11.7-14.6); RDW-SD 43.4 fL
[2022-02-10 15:40] LABS: ALT 28 U/L (14-59); AST 32 U/L (15-37); Albumin 3.9 g/dL (3.4-5.0); Alkaline Phosphatase 81 U/L (46-116); Anion Gap 5.7 mmol/L (3-11); BUN 19 mg/dL (7-18); Bilirubin, Total 0.3 mg/dL (0.2-1.0); CO2 29.3 mmol/L (21.0-32.0); CREATININE 0.6 mg/dL (0.55-1.02); Calcium 9.1 mg/dL (8.5-10.1); Chloride 105 mmol/L (98-107); Estimated GFR 100.17 (mL/min/1.73m2); Glucose 88 mg/dL (74-106); Potassium 4.2 mmol/L (3.5-5.1); Sodium 140 mmol/L (136-145); Total Protein 7.4 g/dL (6.4-8.2)
== END 2022-02-10 14:24 | disposition home or self-care (01) ==
LOC: NCHCN 14:23
PROVIDERS: PCP Family Medicine; Visit Provider Nurse Practitioner Family
DX: Z01.818 Encounter for other preprocedural examination (principal)
CPT/HCPCS: 80053; 85027

== ENCOUNTER 2023-01-18 19:58 | Outpatient (REF) | payer MEDICARE, MEDICAID, SELFPAY ==
[2023-01-18 20:46] LABS: Bilirubin Negative (Negative); Blood Negative (Negative); Clarity Clear (Clear); Glucose Negative (Negative); Ketones Negative (Negative); Leukocyte Esterase Trace (Negative); Nitrite Negative (Negative); Urobilinogen 0.2 mg/dL (Up to 0.2)
[2023-01-18 20:59] LABS: Bacteria Many HPF (Negative); C & S Indicated? Yes; Crystals Negative HPF (Negative); Epithelial Cells Few HPF (Negative); Mucus Negative (Negative); Other Cells Rare Transitional (Negative); RBC Negative HPF (0-2); WBC 0-2 HPF (0-5)
== END 2023-01-18 19:59 | disposition home or self-care (01) ==
LOC: NCHCN 19:58
PROVIDERS: PCP Family Medicine; Visit Provider Family Medicine
DX: R32 Unspecified urinary incontinence (principal)
CPT/HCPCS: 87077; 81003; 81015; 87086; 87186

== ENCOUNTER → 2023-01-24 01:29 | Outpatient (CLI) | payer MEDICARE, MEDICAID, SELFPAY ==
--- NOTE | 2023-01-24 12:15 | DI.US_ITS ---
Exam(s) US RENAL EXAM: US RENAL CLINICAL HISTORY: CYSTOCELE, N81.10; URINARY INCONTINENCE, R32. TECHNIQUE: Wang scale, color and spectral Doppler were used. COMPARISON: No exams were available for comparison FINDINGS: Renal size in cm: Right: 11.5. Left: 10.3. Echogenicity: Normal. Hydronephrosis: No. Cyst or mass: No. Nephrolithiasis: No. Other findings: None. Bladder:Normal. Ureteral jets: Right: Visualized and unremarkable. Left: Visualized and unremarkable. Prevoid vol:696 cc Postvoid vol:43 cc Renal color flow: Symmetric and within normal limits. IMPRESSION: 1. Unremarkable examination. 2. A CT scan of the pelvis should be considered for further evaluation for cystocele. DATA REPOSITORY:
== END ==
PROVIDERS: PCP Family Medicine; Visit Provider Family Medicine
DX: R32 Unspecified urinary incontinence; R82.89 Other abnormal findings on cytological and histological examination of urine; N81.10 Cystocele, unspecified
CPT/HCPCS: 76770

== ENCOUNTER 2023-01-30 14:02 | Outpatient (CLI) | payer MEDICARE, MEDICAID, SELFPAY ==
[2023-01-30 12:15] LABS: Abs Immature Grans 0.01 10^3/uL (0.0-0.06); Absolute Basophil Count 0.06 10^3/uL (0.0-0.2); Absolute Lymphocyte Count 1.72 10^3/uL (1.2-3.4); Absolute Monocyte Count 0.28 10^3/uL (0.1-0.8); Absolute Neutrophil Count 3.32 10^3/uL (1.2-6.7); Basophils % 1.1; Eosinophils % 3.6; HCT 38.5 % (36.0-46.0); HGB 12.9 g/dL (11.2-15.7); Immature Grans % 0.2; Lymphocytes % 30.8; MCH 32.3 pg (27.0-33.0); MCHC 33.5 % (32.0-36.0); MCV 97 fL (80-95); MPV 9.3 fL (8.0-11.0); Neutrophils % 59.3; Platelet Count 206 10^3/uL (130-400); RBC 3.99 10^6/uL (3.93-5.22); RDW 11.9 % (11.7-14.6); RDW-SD 42.6 fL; WBC 5.59 10^3/uL (4.4-10.8)
[2023-01-30 12:41] LABS: ALT 34 U/L (14-59); AST 24 U/L (15-37); Albumin 3.7 g/dL (3.4-5.0); Alkaline Phosphatase 79 U/L (46-116); BUN 20 mg/dL (7-18); Bilirubin, Total 0.2 mg/dL (0.2-1.0); CREATININE 0.5 mg/dL (0.55-1.02); Calcium 9.8 mg/dL (8.5-10.1); Calculated LDL 83 mg/dL (<100); Chloride 104 mmol/L (98-107); Cholesterol 163 mg/dL (<200); Estimated GFR 104.67 (mL/min/1.73m2); Glucose 103 mg/dL (74-106); HDL Cholesterol 73 mg/dL (40-60); Potassium 4.2 mmol/L (3.5-5.1); Sodium 141 mmol/L (136-145); Total Protein 7.4 g/dL (6.4-8.2); Triglyceride 39 mg/dL (<150)
== END 2023-01-30 14:03 | disposition home or self-care (01) ==
LOC: LBO 14:02
PROVIDERS: PCP Family Medicine; Visit Provider Nurse Practitioner Family
DX: R35.0 Frequency of micturition (principal); N81.10 Cystocele, unspecified
CPT/HCPCS: 36415; 80053; 80061; 85025

== ENCOUNTER 2023-01-30 18:20 | Outpatient (REF) | payer MEDICARE, MEDICAID, SELFPAY ==
[2023-01-31 09:54] LABS: Bilirubin Negative (Negative); Blood Negative (Negative); Clarity Clear (Clear); Glucose Negative (Negative); Ketones Negative (Negative); Leukocyte Esterase Trace (Negative); Nitrite Negative (Negative); Specific Gravity 1.015 (1.005-1.025); Urobilinogen 0.2 mg/dL (Up to 0.2); pH 7.5 (5-8)
[2023-01-31 10:07] LABS: Bacteria Few HPF (Negative); C & S Indicated? Yes; Casts Negative LPF (Negative); Crystals Negative HPF (Negative); Epithelial Cells Rare HPF (Negative); Mucus Negative (Negative); RBC Negative HPF (0-2); WBC 0-2 HPF (0-5)
== END 2023-01-30 18:21 | disposition home or self-care (01) ==
LOC: NCHCN 18:20
PROVIDERS: PCP Family Medicine; Visit Provider Nurse Practitioner Family
DX: R35.0 Frequency of micturition (principal); N81.10 Cystocele, unspecified; E78.5 Hyperlipidemia, unspecified; R82.89 Other abnormal findings on cytological and histological examination of urine
CPT/HCPCS: 87077; 81003; 81015; 87086; 87186

== ENCOUNTER → 2023-02-10 00:33 | Outpatient (CLI) | payer MEDICARE, MEDICAID, SELFPAY ==
--- NOTE | 2023-02-10 | DI.CT_ITS ---
Exam(s) CT PELVIC WO EXAM: CT PELVIC WO CLINICAL HISTORY: CYSTOCELE, N81.10,F/U ABLN US 01/24/22. TECHNIQUE: Imaging Protocol: Axial computed tomography images with coronal and sagittal reformatted images were created and reviewed. CONTRAST MATERIAL: Oral: / no COMPARISON: US US RENAL from 01/24/2023 FINDINGS: Bladder: Limited evaluation due to large amount of streak artifact from bilateral hip prostheses. Th e bladder is mildly distended. The inferior aspect of the bladder has a mildly funneled shape. It d oes not extend below the level of the pubococcygeal line. Bowel: No obstruction or bowel wall thickening. Large quantity of stool. Peritoneal cavity: No ascites, collection or mesenteric inflammatory response. Reproductive: Unremarkable. Bones: Bilateral hip prostheses this creates artifact through the region of the bladder. No fractur e. Severe degenerative changes at L4-5 and L5-S1. Soft tissues: Unremarkable. IMPRESSION: Slight funneling of the inferior bladder but no gemma cystocele. RADIATION DOSE DELIVERED: Total DLP DATA REPOSITORY: All CT scans at this facility are submitted to the National Radiology Data Registry (NRDR) Dose Index Registry (DIR) with the [employer] (ACR). RADIATION OPTIMIZATION: All CT scans at this facility use at least one of these dose optimization te chniques: automated exposure control; mA and/or kV adjustment per patient size (includes targeted exa ms where dose is matched to clinical indication); or iterative reconstruction.
== END ==
PROVIDERS: PCP Family Medicine; Visit Provider Nurse Practitioner Family
DX: N81.10 Cystocele, unspecified (principal)
CPT/HCPCS: 72192

== ENCOUNTER 2023-02-14 18:34 | Outpatient (REF) | payer MEDICARE, MEDICAID, SELFPAY ==
[2023-02-14 15:39] LABS: Bilirubin Negative (Negative); Blood Negative (Negative); Clarity Clear (Clear); Glucose Negative (Negative); Ketones Negative (Negative); Leukocyte Esterase Trace (Negative); Nitrite Negative (Negative); Specific Gravity 1.015 (1.005-1.025); Urobilinogen 0.2 mg/dL (Up to 0.2)
[2023-02-14 15:54] LABS: Bacteria Few HPF (Negative); C & S Indicated? C&S Done As Ordered; Crystals Negative HPF (Negative); Epithelial Cells Rare HPF (Negative); Mucus Negative (Negative); Other Cells Rare Transitional (Negative); RBC 0-2 HPF (0-2); WBC 0-2 HPF (0-5)
== END 2023-02-14 18:35 | disposition home or self-care (01) ==
LOC: NCHCN 18:34
PROVIDERS: PCP Family Medicine; Visit Provider Nurse Practitioner Family
DX: R35.0 Frequency of micturition (principal); R82.89 Other abnormal findings on cytological and histological examination of urine
CPT/HCPCS: 81003; 81015; 87086

== ENCOUNTER 2023-03-17 08:46 | Outpatient (REF) | payer MEDICARE, MEDICAID, SELFPAY ==
[2023-03-17 09:33] LABS: Bilirubin Negative (Negative); Blood Negative (Negative); Clarity Clear (Clear); Glucose Negative (Negative); Ketones Negative (Negative); Leukocyte Esterase Moderate (Negative); Nitrite Positive (Negative); Specific Gravity 1.015 (1.005-1.025); Urobilinogen 0.2 mg/dL (Up to 0.2)
[2023-03-17 09:48] LABS: Bacteria Moderate HPF (Negative); C & S Indicated? C&S Done As Ordered; Casts Negative LPF (Negative); Crystals Negative HPF (Negative); Epithelial Cells Rare HPF (Negative); Mucus Negative (Negative); RBC Negative HPF (0-2)
== END 2023-03-17 08:47 | disposition home or self-care (01) ==
LOC: LBN 08:46
PROVIDERS: PCP Family Medicine; Visit Provider Urology
DX: R39.89 Other symptoms and signs involving the genitourinary system (principal); R82.998 Other abnormal findings in urine
CPT/HCPCS: 87077; 81003; 81015; 87086; 87186

== ENCOUNTER 2023-04-07 14:41 | Outpatient (REF) | payer MEDICARE, MEDICAID, SELFPAY | END 2023-04-07 14:42 | disposition home or self-care (01) | LOC: LBN 14:41 | PROVIDERS: PCP Family Medicine; Visit Provider Urology | DX: R39.89 Other symptoms and signs involving the genitourinary system (principal); R82.998 Other abnormal findings in urine | CPT/HCPCS: 87077; 87086; 87186 ==

== ENCOUNTER 2024-02-29 02:24 | Outpatient (CLI) | payer MEDICARE, MEDICAID, SELFPAY ==
--- NOTE | 2024-02-29 | DI.CTLCSR_ITS ---
Exam(s) CT CHEST LUNG CANCER SCREEN EXAM: CT CHEST LUNG CANCER SCREEN CLINICAL HISTORY: PERS HX NICOTINE DEPENDENCE Z87.891. TECHNIQUE: Imaging Protocol: Low Dose Technique CONTRAST MATERIAL: None COMPARISON: No exams were available for comparison FINDINGS: CHEST: LUNGS: There are no ominous pulmonary nodules. There are no confluent infiltrates. No pleural effusi ons. MEDIASTINUM: There is no obvious hilar nor mediastinal adenopathy. CARDIAC: Heart size is normal. There is no pericardial effusion.Caliber of the thoracic aorta is wit hin normal limits. OTHER: No obvious adrenal masses. Visualized spleen normal size. OSSEOUS: No fractures. No significant osseous lesions.. IMPRESSION: 1. No significant pulmonary nodules. 2. No infiltrates nor pleural effusions nor intrathoracic adenopathy 3. Lung RADS Cat 1 - Negative: No nodules and definitely benign nodules Lung-RADS 1.0 CATEGORIES: Category 0 - Prior chest CT exam(s) being located for comparison. Category 1 - Annual screening in 12 months. No nodules or definitely benign nodules. Category 2 - Annual screening in 12 months. Benign appearance. Nodules with low likelihood of becomin g active cancer. Category 3 - 6-month follow-up. Probably benign. Short-term follow-up suggested. Nodules with low lik elihood of becoming active cancer. Category 4A - 3-month follow-up and CT/PET if >8 mm in size. Suspicious finding. Findings which requi re additional testing. Category 4B - Findings which require additional testing and tissue sampling. Category 4X - Category 3 or 4 nodules with additional features or imaging findings that increases the suspicion of malignancy. Modifier S- Potentially clinically significant findings (non lung cancer) RADIATION DOSE DELIVERED: 24.16mGy.cm Total DLP DATA REPOSITORY: All CT scans at this facility are submitted to the National Radiology Data Registry (NRDR) Dose Index Registry (DIR) with the [employer] (ACR). RADIATION OPTIMIZATION: All CT scans at this facility use at least one of these dose optimization te chniques: automated exposure control; mA and/or kV adjustment per patient size (includes targeted exa ms where dose is matched to clinical indication); or iterative reconstruction.
== END 2024-02-29 02:44 ==
PROVIDERS: PCP Family Medicine; Visit Provider Nurse Practitioner Family
DX: Z87.891 Personal history of nicotine dependence (principal); Z12.2 Encounter for screening for malignant neoplasm of respiratory organs
CPT/HCPCS: 71271

== ENCOUNTER 2024-05-16 10:08 | Outpatient (REF) | payer MEDICARE, MEDICAID, SELFPAY ==
[2024-05-16 15:06] LABS: HCT 39.1 % (36.0-46.0); HGB 12.9 g/dL (11.2-15.7); MCH 31.5 pg (27.0-33.0); MCV 96 fL (80-95); MPV 9.3 fL (8.0-11.0); Platelet Count 248 10^3/uL (130-400); RBC 4.09 10^6/uL (3.93-5.22); RDW 12.7 % (11.7-14.6); RDW-SD 44.3 fL; WBC 5.95 10^3/uL (4.4-10.8)
[2024-05-16 15:18] LABS: Iron 99 ug/dL (50-170); Total Iron Binding Capacity 356 ug/dL (250-450); Transferrin Sat 28 % (15-50)
[2024-05-16 15:33] LABS: ALT 31 U/L (14-59); AST 27 U/L (15-37); Albumin 3.9 g/dL (3.4-5.0); Alkaline Phosphatase 85 U/L (46-116); Anion Gap 7.1 mmol/L (3-11); BUN 10 mg/dL (7-18); Bilirubin, Total 0.43 mg/dL (0.2-1.0); CO2 27.9 mmol/L (21.0-32.0); CREATININE 0.8 mg/dL (0.55-1.02); Calcium 9.5 mg/dL (8.5-10.1); Calculated LDL 99 mg/dL (<100); Chloride 105 mmol/L (98-107); Cholesterol 190 mg/dL (<200); Estimated GFR 81.21 (mL/min/1.73m2); Ferritin 27 ng/mL (8-252); Glucose 106 mg/dL (74-106); HDL Cholesterol 72 mg/dL (40-60); Potassium 4.3 mmol/L (3.5-5.1); Sodium 140 mmol/L (136-145); Triglyceride 96 mg/dL (<150)
== END 2024-05-16 10:09 | disposition home or self-care (01) ==
LOC: NCHCN 10:08
PROVIDERS: PCP Family Medicine; Visit Provider Nurse Practitioner Family
DX: E78.5 Hyperlipidemia, unspecified (principal); J06.9 Acute upper respiratory infection, unspecified; G25.81 Restless legs syndrome
CPT/HCPCS: 80053; 80061; 85027; 82728; 83540; 83550

== ENCOUNTER → 2025-03-03 02:17 | Outpatient (CLI) | payer MEDICARE, MEDICAID, SELFPAY ==
--- NOTE | 2025-03-03 | DI.CTLCSR_ITS ---
Exam(s) CT CHEST LUNG CANCER SCREEN EXAM: CT CHEST LUNG CANCER SCREEN CLINICAL HISTORY: Z87.891,F17.201 Personal history nicotine dependence, in remission TECHNIQUE: Imaging Protocol: Axial computed tomography images with coronal and sagittal reformatted images were created and reviewed. Lung Computer Aided Detection (CAD) was utilized. COMPARISON: CT CT CHEST LUNG CANCER SCREEN from 02/29/2024 FINDINGS: Tracheobronchial tree: Patent where visualized. No bronchiectasis. Pulmonary parenchyma: There is a stable area of scarring in the right middle lobe. No new infiltrates are seen. No architectural distortion. Lung Nodules: There are no suspicious pulmonary nodules. Mediastinum and Cyn: No dominant adenopathy or fluid collection. The esophagus is unremarkable. Thyroid gland: Unremarkable. Lymph nodes: Unremarkable. Pleura: No effusion or pneumothorax. Heart: The heart is not dilated. No coronary artery calcifications are seen. No pericardial effusion. Aorta: Thoracic aorta non-dilated.Atherosclerotic calcification is present. Upper abdomen: Unremarkable. Soft Tissues: Unremarkable. Bones: Within normal limits. IMPRESSION: 1. There are no suspicious pulmonary nodules. 2. There is no acute pulmonary process. Lung RADS Cat 1 - Negative: No nodules and definitely benign nodules Lung-RADS 1.0 CATEGORIES: Category 0 - Prior chest CT exam(s) being located for comparison. Category 1 - Annual screening in 12 months. No nodules or definitely benign nodules. Category 2 - Annual screening in 12 months. Benign appearance. Nodules with low likelihood of becoming active cancer. Category 3 - 6-month follow-up. Probably benign. Short-term follow-up suggested. Nodules with low likelihood of becoming active cancer. Category 4A - 3-month follow-up and CT/PET if >8 mm in size. Suspicious finding. Findings which require additional testing. Category 4B - Findings which require additional testing and tissue sampling. Suspicious finding. Category 4X - Category 3 or 4 nodules with additional features or imaging findings that increases the suspicion of malignancy. Modifier S- Potentially clinically significant finding. (Non lung cancer) RADIATION DOSE DELIVERED: 20.27mGy.cm Total DLP 20.27mGy.cmTotal DLP DATA REPOSITORY: All CT scans at this facility are submitted to the National Radiology Data Registry (NRDR) Dose Index Registry (DIR) with the [employer] (ACR). RADIATION OPTIMIZATION: All CT scans at this facility use at least one of these dose optimization techniques: automated exposure control; mA and/or kV adjustment per patient size (includes targeted exams where dose is matched to clinical indication); or iterative reconstruction.
== END ==
PROVIDERS: PCP Family Medicine; Visit Provider Nurse Practitioner Family
DX: Z87.891 Personal history of nicotine dependence (principal)
CPT/HCPCS: 71271

== ENCOUNTER 2025-03-18 18:05 | Outpatient (REF) | payer MEDICARE, MEDICAID, SELFPAY ==
[2025-03-18 19:03] LABS: HCT 37.7 % (36.0-46.0); HGB 12.6 g/dL (11.2-15.7); MCH 30.7 pg (27.0-33.0); MCHC 33.4 % (32.0-36.0); MCV 92 fL (80-95); MPV 9.6 fL (8.0-11.0); Platelet Count 198 10^3/uL (130-400); RBC 4.10 10^6/uL (3.93-5.22); RDW 12.4 % (11.7-14.6); RDW-SD 41.4 fL; WBC 6.19 10^3/uL (4.4-10.8)
[2025-03-18 19:20] LABS: Iron 52 ug/dL (50-170); Total Iron Binding Capacity 331 ug/dL (250-425); Transferrin Sat 16 % (15-50)
[2025-03-18 19:21] LABS: ALT 26 U/L (10-49); AST 28 U/L (<34); Albumin 4.2 g/dL (3.2-5.0); Alkaline Phosphatase 75 U/L (46-116); Anion Gap 8 mmol/L (3-11); BUN 20 mg/dL (9-23); Bilirubin, Total 0.2 mg/dL (0.2-1.2); CO2 27.0 mmol/L (20.0-31.0); Calcium 9.5 mg/dL (8.3-10.6); Chloride 106 mmol/L (98-107); Glucose 77 mg/dL (74-106); Potassium 4.0 mmol/L (3.5-5.1); Sodium 141 mmol/L (136-145); Total Protein 6.6 g/dL (5.7-8.2)
[2025-03-18 19:24] LABS: Ferritin 34 ng/mL (7-271)
== END 2025-03-18 18:06 | disposition home or self-care (01) ==
LOC: NCHCN 18:05
PROVIDERS: PCP Family Medicine; Visit Provider Nurse Practitioner Family
DX: G25.81 Restless legs syndrome (principal)
CPT/HCPCS: 80053; 85027; 82728; 83540; 83550